=== PATIENT | male | born 1955 | race African-American/Black ===

== ENCOUNTER 2018-05-06 09:14 | Outpatient (CLI) | END 2018-05-06 09:15 | disposition home or self-care (01) | LOC: NONPT 09:14 | PROVIDERS: ATTEND Nurse Practitioner Family | DX: N18.6 End stage renal disease (principal); D63.1 Anemia in chronic kidney disease | CPT/HCPCS: 85014; 85018 ==

== ENCOUNTER 2018-05-06 10:40 | Outpatient (CLI) | payer OTHER ==
[2018-05-06] MEDS ORDERED: TYLENOL PO STA (14:14)
[2018-05-06] MEDS ORDERED: BENADRYL 25 MG in SODIUM CHLORIDE 100 ML IV STA (14:16)
[2018-05-06] MEDS ORDERED: SOLU-CORTEF 100 MG IVP STA (14:16)
[2018-05-06 21:36] VITALS: BP 137/75; TEMP 98
== END 2018-05-06 10:41 | disposition home or self-care (01) ==
LOC: LAB 10:40 → OPMED 10:41
PROVIDERS: ATTEND Nurse Practitioner Family
DX: N18.6 End stage renal disease (principal); D63.1 Anemia in chronic kidney disease
CPT/HCPCS: 36415; 36430; 86850; 86900; 86922; 96365; 96366